=== PATIENT | female | born 1980 | race Asian ===

== ENCOUNTER 2016-12-24 10:49 | Emergency (ER) | payer OTHER ==
[2016-12-24] MEDS ORDERED: LORazepam 2 MG/ML INJ IVP ONE (11:19)
[2016-12-24] MEDS ORDERED: NS 1,000 ML IV ONE (11:26)
--- NOTE | 2016-12-24 11:33 | EDPHY ---
H & P Stated Complaint: ON AND OFF CRYING AND SCREAMING SINCE ANTIDEPRESSANT MEDS HPI/ROS: CHIEF COMPLAINT: Multiple complaints after starting paroxetine HISTORY OF PRESENT ILLNESS: Patient complains multiple symptoms after starting Paxil December 19. She reports being prescribed 20 mg once daily by [facility]. She start taking it that evening. Starting the next day she has had periods of crying, laughing , energy, anorexia and being unable to control her emotions. This is moderate to severe. Waxes and wanes. Happens every 30 minutes to an hour. Last short periods of time. Unable to control her emotions with this. Occasional chest pain. Difficulty describing the symptoms he but she cannot stop crying at times. She has no thoughts of self-harm. She has no chest pain at this time. She has no other associated complaints or modifying factors. LMP 1 week ago. REVIEW OF SYSTEMS: Ten systems reviewed and are negative unless otherwise noted in the HPI PAST MEDICAL HISTORY: Denies any current medical history PAST SURGICAL HISTORY: Denies SOCIAL HISTORY: Nonsmoker. Lives here locally FAMILY HISTORY: Noncontributory EXAMINATION General Appearance: Alert, no distress, emotionally labile Head: normocephalic, atraumatic Eyes: Pupils equal and round, no conjunctival pallor or injection ENT, Mouth: Mucous membranes moist. Airway patent Neck: Normal inspection, supple, non-tender Respiratory: Lungs are clear to auscultation Cardiovascular: Regular rate and rhythm. No murmur. Pulses intact distally Gastrointestinal: Abdomen is soft and nontender Back: non-tender, no bony abnormalities Neurological: GCS 15. A&O, nonfocal, normal gait Skin: Warm and dry, no rash Extremities: Nontender, no pedal edema Psychiatric: Emotional lability with crying and laughing. She does stop intermittently to discuss with appropriate conversation. No suicidal ideation DIFFERENTIAL DIAGNOSES: Including but not limited to adverse drug reaction, emotional lability, dehydration, depression, withdrawal, serotonin syndrome MDM: 11:25 a.m. Emotional lability after starting paroxetine 20 mg daily 4 days ago. The patient has a wide range of motion she describes as well as lack of energy, energy, anorexia. Vital signs are within normal limits. She is very labile while I was in the room. No evidence of serotonin syndrome I have ordered Ativan and laboratory studies. I have also ordered a pharmacy consult to verify that the paroxetine is actually accurately labile. 11:35 a.m. I discussed case with the pharmacist Oriana. She has checked the pills in the paroxetine bottle and verifies that they are 20 mg of paroxetine. 12:20 p.m. I have re-evaluated the patient. She is sleeping and resting comfortably at this time. Her friends at bedside says that she has been much better since administration of the Ativan. Labs are pending at this time 12:45 p.m. I have re-evaluated the patient. She continues to be somnolent but easily awakes. She has had no further symptoms since the Ativan IV. She is comfortable being discharged home at do feel she is stable to do so. We discussed discontinuation of the Paxil. We discussed Ativan 1 mg by mouth every 8 hours as needed for symptoms. She is to contact her prescribing physician tomorrow morning to discuss changing to a new medication. She is to return to the ER for return of her symptoms, fever, dystonia, difficulty moving or difficulty with thought process. She and her family at bedside are comfortable with this plan and she is discharged home in stable condition. Source: Patient, Family Exam Limitations: No limitations - Personal History LMP (Females 10-55): 8-14 Days Ago Current Tetanus Diphtheria and Acellular Pertussis (TDAP): Unsure - Medical/Surgical History Hx Asthma: No Hx Chronic Respiratory Disease: No Hx Diabetes: No Hx Cardiac Disease: No Hx Renal Disease: No Hx Cirrhosis: No Hx Alcoholism: No Hx HIV/AIDS: No Hx Splenectomy or Spleen Trauma: No Other PMH: THYROID - Social History Smoking Status: Never smoked Constitutional: Initial Vital Signs Temperature (C) 98.2 F 12/24/16 10:53 Heart Rate 62 12/24/16 10:53 Respiratory Rate 16 12/24/16 10:53 Blood Pressure 141/98 H 12/24/16 10:53 O2 Sat (%) 95 12/24/16 10:53 O2 Delivery Mode Room Air Allergies/Adverse Reactions: No Known Allergies Allergy (Unverified 12/24/16 10:57) Home Medications: Medication Instructions Recorded LORazepam [Ativan] 1 mg PO Q8 PRN #5 tablet 12/24/16 Ranitidine HCl 12/24/16 Medical Decision Making - Data Points Laboratory Results: Laboratory Results 12/24/16 11:45 12/24/16 11:45 Medications Given: Discontinued Medications Sodium Chloride (Ns) 1,000 mls @ 0 mls/hr IV EDNOW ONE; Wide Open PRN Reason: Protocol Stop: 12/24/16 11:27 Last Admin: 12/24/16 11:55 Dose: 1,000 mls Lorazepam (Ativan Injection) 1 mg IVP EDNOW ONE Stop: 12/24/16 11:20 Last Admin: 12/24/16 11:55 Dose: 1 mg Departure - Departure Disposition: Home, Routine, Self-Care Clinical Impression: Adverse drug reaction Qualifiers: Encounter type: initial encounter Qualified Code(s): T88.7XXA - Unspecified adverse effect of drug or medicament, initial encounter Condition: Good Instructions: Paroxetine (By mouth), Adverse Drug Reaction (ED) Additional Instructions: 1. Discontinue the Paxil immediately 2. Ativan 1 mg by mouth every 8 hours as needed as prescribed 3. Contact prescribing physician tomorrow morning for medication reconciliation an outpatient follow-up 4. ED precautions as discussed Referrals: [facility] [Other] - As per Instructions Prescriptions: LORazepam [Ativan] 1 mg PO Q8 PRN #5 tablet PRN Reason: Anxiety
--- NOTE | 2016-12-24 11:44 | CPEKG ---
Heart Rate: 62 RR Interval: 968 P-R Interval: 168 QRSD Interval: 84 QT Interval: 404 QTC Interval: 411 P [place]: 22 QRS [place]: 35 T Wave [place]: 37 EKG Severity - NORMAL ECG - EKG Impression: SINUS RHYTHM Electronically Signed By: Jairon Ya 24-Dec-2016 14:47:15
[2016-12-24 12:03] LABS: % IMMATURE GRANULYOCYTES 0.2 % (0.0-1.1); ABSOLUTE IMMATURE GRANULOCYTES 0.02 10^3/uL (0.00-0.10); ADD DIFF? NO; ADD MORPH? NO; ADD SCAN? NO; ATYPICAL LYMPHOCYTE FLAG 40 (0-99); FRAGMENT RBC FLAG 0 (0-99); HEMATOCRIT 44.3 % (38.0-47.0); HEMOGLOBIN 14.9 g/dL (12.6-16.3); LEFT SHIFT FLG 0 (0-99); LIPEMIA HEMOLYSIS FLAG 80 (0-99); MEAN CELL HEMOGLOBIN CONCENTR. 33.6 g/dL (32.4-36.7); MEAN CELL VOLUME 92.1 fL (81.5-99.8); MEAN PLATELET VOLUME 10.7 fL (8.7-11.7); PLATELET CLUMPS FLAG 10 (0-99); PLATELET COUNT 223 10^3/uL (150-400); RED BLOOD CELL COUNT 4.81 10^6/uL (4.18-5.33); RED CELL DISTRIBUTION WIDTH 12.4 % (11.5-15.2)
[2016-12-24 12:15] LABS: ANION GAP 11 mEq/L (8-16); CALCIUM 9.8 mg/dL (8.5-10.4); CARBON DIOXIDE 22 mEq/l (22-31); CHLORIDE 105 mEq/L (97-110); CREATININE 0.9 mg/dL (0.6-1.0); GLOMERULAR FILTRATION RATE > 60; GLUCOSE 86 mg/dL (70-100); POTASSIUM 4.1 mEq/L (3.5-5.2); SODIUM 138 mEq/L (134-144)
[2016-12-24 13:27] VITALS: PULSE 101; O2SAT 97
[2016-12-24 13:28] VITALS: BP 107/72; RESP 16; TEMP 97.7
== END 2016-12-24 13:28 | disposition home or self-care (01) ==
DX: R63.0 Anorexia (principal); T43.225A Adverse effect of selective serotonin reuptake inhibitors, initial encounter; E86.9 Volume depletion, unspecified
CPT/HCPCS: 96374; J2060

== ENCOUNTER → 2018-07-30 | Outpatient (CLI) | payer OTHER | LOC: BMCIMAGING 17:02 | PROVIDERS: ATTEND Family Medicine | DX: S69.91XA Unspecified injury of right wrist, hand and finger(s), initial encounter (principal) ==